=== PATIENT | male | born 1975 | race Two or more races ===

== ENCOUNTER 2018-06-06 03:36 | Emergency (ER) | payer OTHER ==
[~2018-06-06] VITALS: Ht 175.3 cm; Wt 90.7 kg
--- NOTE | 2018-06-06 03:44 | Emergency Room Report ---
History of Present Illness General Chief Complaint: dog bite Source: Patient Present Illness HPI Patient presents by police department and paramedics with reports of canine dog bite to the left upper leg Patient has sustained a puncture type wound with a bite Patient has localized discomfort to the region Pain is 7 out of 10 Denies any other focal weakness He does feel some neuropathy at the site of the bite Allergies: Coded Allergies: No Known Allergies (Unverified , 06/06/18) Patient History Past Medical History: see triage record Pertinent Family History: none Reviewed Nursing Documentation: PMH: Agreed; PSxH: Agreed Review of Systems All Other Systems: negative except mentioned in HPI Physical Exam 98% on RA which is normal General Appearance: mild distress Head: normocephalic, atraumatic Eyes: bilateral eye PERRL, bilateral eye EOMI ENT: normal pharynx Neck: supple Respiratory: lungs clear Cardiovascular #1: regular rate, rhythm Gastrointestinal: non tender, soft Musculoskeletal: other - 2 distinct puncture type wounds at the left upper lateral thigh, surrounded with several areas of abrasion likely from bite medrano Neurologic: alert, oriented x3, responsive Skin: other - As above Lymphatic: no adenopathy Procedures Laceration/Wound Repair Progress The area is cleansed and irrigated with hydrogen peroxide and normal saline under high pressure, Steri-Strips are applied over the 2 puncture type wounds specifically. There is no length of the region as these are puncture type wounds. Bacitracin applied and dressing applied Medical Decision Making Diagnostic Impression: Primary Impression: Dog bite Additional Impression: ok to book ER Course Given the patient's history and presentation The area of dog bite was cleansed and irrigated with high-pressure saline The 2 small areas of puncture wound are not appropriate for suturing and will require secondary healing Further antibiotic ointment was placed patient did have a Steri-Strip applied for some approximation Oral antibiotics also applied and provided and patient requires close outpatient follow-up Chest X-Ray Diagnostic Results Chest X-Ray Diagnostic Results : Chest X-Ray Ordered: Yes # of Views/Limited/Complete: 1 View Indication: Chest Pain EP Interpretation: Yes Interpretation: no consolidation, no effusion, no pneumothorax Impression: No acute disease Electronically Signed by: Razia Jimenez DO Status: improved Disposition: D/C TO [facility] Condition: Improved Scripts Bacitracin (BACITRACIN*) 1 Each Packet 1 PACKET TOPIC DAILY, #20 PACKET 0 Refills Prov: Razia Jimenez DO 06/06/18 Ibuprofen* (MOTRIN*) 600 Mg Tablet 600 MG ORAL Q8H PRN for For Pain, #20 TAB 0 Refills Prov: Razia Jimenez DO 06/06/18 Amoxicillin/Potassium Clav 875-125* (AUGMENTIN 875-125 TABLET*) 1 Each Tablet 1 TAB ORAL TWICE A DAY, #14 TAB Prov: Razia Jimenez DO 06/06/18 Additional Instructions: Patient is provided with the discharge instructions notified to follow up with primary doctor in the next 2-3 days otherwise return to the er with any worsening symptoms. Please note that this report is being documented using [employer] technology. This can lead to erroneous entry secondary to incorrect interpretation by the dictating instrument. Razia Jimenez DO Jun 06, 2018 03:44
[2018-06-06] MEDS ORDERED: Hydrogen Peroxide 473ml Bottle TOPIC ONE (03:45)
[2018-06-06] MEDS ORDERED: Augmentin 875mg Tab ORAL ONE (03:45)
[2018-06-06] MEDS ORDERED: Bacitracin Oint UD TOPIC ONE (03:45)
[2018-06-06] MEDS ORDERED: Tetanus/Diptheria/Pertussis IM ONE (03:45)
[2018-06-06 03:55] VITALS: BP 118/83
--- NOTE | 2018-06-06 03:55 | NUR ---
ED Nurse Note: PT BROUGHT IN BY PD FOR MEDICAL CLEARANCE, PT S/P DOG BITE TO LEFT OUTER THIGH AND RIGHT HAND INDEX FINGER, PAIN AT 8/10, DENIES K.O OR OTHER COMPLAINTS. AAO x4, VSS AT THIS TIME.
[2018-06-06] MEDS ORDERED: AUGMENTIN 875-1 EAC1 ORAL (04:01)
[2018-06-06] MEDS ORDERED: IBUPROFEN600 MG ORAL (04:01)
[2018-06-06] MEDS ORDERED: BACITRACIN1 EACH TOPIC (04:01)
--- NOTE | 2018-06-06 04:05 | NUR ---
ED Nurse Note: Patient's wounds were cleaned with normal saline and peroxide. Dry dressing was applyed.
[2018-06-06 04:11] VITALS: BP 118/83
--- NOTE | 2018-06-06 04:14 | NUR ---
ED Nurse Note: Pt cleared by health care Provider for discharge. DC instructions/prescription was given and explained to pt and verbalized understanding of teachings. All medical deviecs such as ID band removed. Pt is AAO x4, ambulatory and left with all personal belongings.
--- NOTE | 2018-06-06 10:26 | Diagnostic Imaging Report ---
Indication: Shortness of breath Technique: One view of the chest Comparison: none Findings: Patient's chin obscures the upper mediastinum. The lungs and pleural spaces are clear. The heart size is normal Impression: No acute process
== END 2018-06-06 04:25 ==
LOC: EMR 03:47
DX: S71.132A Puncture wound without foreign body, left thigh, initial encounter (principal); W54.0XXA Bitten by dog, initial encounter; Y92.9 Unspecified place or not applicable; Z23 Encounter for immunization
CPT/HCPCS: 71045; 90471; 90715; 99283